=== PATIENT | female | born 1955 | race Caucasian/White ===

== ENCOUNTER → 2017-10-30 | Outpatient (CLI) | payer OTHER ==
[~2017-10-30] MED LIST: ASCORBIC ACID500 M3 PO; BUDESONIDE0.5 MG/2 M IH; CO Q-10100 MG PO; ELAVIL25 MG PO; GINKGO BILOBA120 M1 PO; IBUPROFEN200 M1 PO; LEVOTHYROXINE112 MCG PO; LIDOCAINE OINTMENT TP; LIDOCAINE700 MG TD; MELOXICAM15 MG PO; METAMUCIL POWD798 GM PO; OMEGA 3-6-9 11200 MG PO; PREPARATION H O28 GM PR; PREPARATION H1 EAC4 PR; PROAIR HFA8.5 GM IH; PULMICORT FLEX90 MCG IH; TRANSDERM-SCO1 PATCH TD; TURMERIC500 MG PO; TYLENOL EXTRA500 MG PO; VALACYCLOVIR1000 MG PO; VENTOLIN HFA18 GM IH; VITAMIN D31000 UNI2 PO; VITAMIN E400 UNIT PO; XANAX0.5 MG PO; ZOCOR20 MG PO; ZOLPIDEM TARTRA10 MG PO; ZYRTEC10 M2 PO
== END | disposition home or self-care (01) ==
LOC: RES 10-28 08:00
DX: J45.990 Exercise induced bronchospasm (principal)
CPT/HCPCS: 94070; 94726; 94729